=== PATIENT | female | born 1965 | race Caucasian/White ===

== ENCOUNTER 2020-05-26 20:31 | Observation (INO) ==
--- NOTE | 2020-05-26 21:11 | Emergency Department Note ---
Impression & Plan Ventricular tachycardia, Autoimmune hepatitis, Cardiac sarcoidosis, Hypokalemia ED Provider Note NAME: TERESA BRODY AGE: 55 SEX: F ARRIVES VIA: Walk-In INFORMANT: Patient, ED PROVIDER(S): Segundo Kc MD CHIEF COMPLAINT: chest pain PLAN: Disposition: Admit. MEDICAL DECISION MAKING: The patient is a pleasant 55-year-old woman with a complicated past medical history of autoimmune cirrhosis and history of sarcoidosis with sarcoid cardiomy opathy, status post AICD/PPM in September 2019 who presents emerge department with ongoing episodes of chest tingling she reports occurs intermittently for months since her device placement but had an episode tonight when she was at work that she felt lasted longer where she reports feeling this sensation and then noticed her heart rate was in the upper 40s on her watch but then walked her car and within the 110s. The patient denies fevers, chills, cough, congestion, nausea, vomit, diarrhea, urinary symptoms. On arrival the patient is anxious appearing but no acute distress, afebrile stable vital signs. Exam is otherwise unremarkable. EKG without overt acute ischemia. Chest x-ray negative for acute cardiopulmonary process per my preliminary review. WBC and platelets within normal limits. Hct wnl. Chemistry without metabolic acidosis. Potassium 3.6 and electrolytes otherwise without sniffing and abnormality. Total bilirubin 1.9 and AST 55 in the setting of the patient's autoimmune cirrhosis. Troponin negative/undetectable. BNP within normal limits. TSH 5.3 however free T4 within normal limits. Interrogation of the patient's ppm/AICD. Was performed and reviewed with flo.do music sound light technician who confirms the patient did have 2 prolonged episodes of V. tach this evening at approximately 1930 and a 20 which correlates to the patient's symptoms where the first episode required at least 4 treatments of ATP before successfully resolving and subsequently 2 treatments of ATP. Did review the case with the patient's top loader, Dr. Flores who was on-call. Recommends admission if patient agrees. Given the patient's prolonged QTC will defer antiarrhythmics at this time. However the patient did miss her evening metoprolol succinate last night and did not take it today and so will give the patient her home medication and provide potassium supplementation. Likely EP consultation in the morning. Plan was reviewed with the patient and she does agree with admission. Case was discussed with Dr. Pinzon, [facility] hospitalist, who will evaluate the patient for admission. Triage Nursing notes reviewed and agree them. Prior medical records reviewed Vital Signs: reviewed and remarkable for no significant abnormalities Differential diagnosis: Cardiac ischemia, aortic dissection, pulmonary embolism, pneumothorax, pneumonia, pericarditis, myocarditis, esophageal rupture, GERD, cholecystitis, pancreatitis, musculoskeletal, as well as other pathologies. ER treatment provided: See below. Diagnostics interpreted by me: ECG: Normal sinus rhythm, 78 bpm, right bundle branch block, LVH, T wave inversion anteriorly, no overt ST elevation or depression. QTc 519 increased from prior. QRS 150. Cardiac Monitoring: An order for continuous cardiac monitoring was placed and demonstrated Normal sinus rhythm, 78 bpm, no ectopy. Laboratory studies: See below Imaging studies: Chest x-ray: No acute cardiopulmonary process per my preliminary review. Consultation(s): Dr. Flores, [facility] on-call. Case was discussed with Dr. Pinzon, [facility] hospitalist, who will evaluate the patient for admission. HPI: The patient is a pleasant 55-year-old woman with a complicated past medical history of autoimmune cirrhosis and history of sarcoidosis with sarcoid cardiomyopathy, status post AICD/PPM in September 2019 who presents emerge department with ongoing episodes of chest tingling she reports occurs intermittently for months since her device placement but had an episode tonight when she was at work that she felt lasted longer where she reports feeling this sensation and then noticed her heart rate was in the upper 40s on her watch but then walked her car and within the 110s. The patient denies fevers, chills, cough, congestion, nausea, vomit, diarrhea, urinary symptoms. ROS: See above HPI for pertinent positives & negatives. A total of 10 systems reviewed and were otherwise negative. PAST MEDICAL HISTORY:See Below PAST SURGICAL HISTORY:See Below FAMILY HISTORY:See Below SOCIAL HISTORY:See Below HOME MEDICATIONS:See Below ALLERGIES:See Below VITALS:See Below PHYSICAL EXAMINATION: GENERAL: Awake, alert, anxious-appearing, in no distress HENT: Normocephalic, atraumatic. Oropharynx with dry mucous membranes and otherwise unremarkable. EYES: Normal conjunctiva. Sclera non-icteric. NECK: Supple. No nuchal rigidity. FROM. No JVD. RESPIRATORY: Clear to auscultation. CARDIAC: Regular rate, normal rhythm. Extremities warm and well perfused. Pulses equal. ABDOMEN: Soft, non-distended. No tenderness to palpation. No rebound or guarding. No masses. RECTAL: Deferred. MUSCULOSKELETAL: Chest examination reveals no tenderness. The back is symmetri kobe on inspection without obvious abnormality. There is no CVA tenderness to palpation. No joint edema. LOWER EXTREMITIES: Calves are equal size bilaterally and non-tender. Scant BLE edema. No discoloration. NEURO: Normal sensorium. No sensory or motor deficits noted. SKIN: No rash or jaundice noted. Segundo Kc MD Past Med/Surg History Medical History Autoimmune hepatitis Cirrhosis Esophageal varices Primary biliary cirrhosis Surgical History History of esophagogastroduodenoscopy (EGD) Family History Other Coronary heart disease No pertinent family history Social History Smoking Status: Former smoker Tobacco Type: Cigarettes Hx Alcohol Use: No Hx Substance Use: No Preferred Language: Chinese Communication Ability: Effective Business Loan Processor Required: No Beliefs That Will Affect Care: None Current Living Situation: Spouse Feels Safe at Home: Yes Assistive Devices: Glasses Allergies Allergies Allergy/AdvReac Type Severity Reaction Status Date / Time acetaminophen [From Tylenol] Allergy Unknown Body rash Verified 05/26/20 21:38 and swelling of tongue Home Meds Home Medications Medication Instructions Recorded Confirmed ergocalciferol (vitamin D2) 50,000 unit PO WK 03/13/18 05/26/20 [Vitamin D2] ferrous sulfate 325 mg PO DAILY 03/13/18 05/26/20 lactulose 15 ml PO TID 03/13/18 05/26/20 magnesium oxide 400 mg PO BID 03/13/18 05/26/20 pantoprazole 40 mg PO DAILY 03/13/18 05/26/20 ursodiol 300 mg PO TID 03/13/18 05/26/20 bumetanide 2 mg PO DAILY 05/26/20 05/26/20 metoprolol succinate 75 mg PO HS 05/26/20 05/26/20 spironolactone 100 mg PO DAILY 05/26/20 05/26/20 venlafaxine 37.5 mg PO DAILY 05/26/20 05/26/20 Results & Data (ED) Vital Signs Vital Signs - 24 hr 05/26/20 20:36 05/26/20 20:50 05/26/20 21:11 Temperature 36.7 C Temperature Source Oral Pulse Rate 90 84 Pulse Rate from SpO2 Sensor 84 Respiratory Rate 16 18 Respiratory Effort / Characteristics Non-Labored Spontaneous Respiratory Depth Normal Blood Pressure 118/83 121/73 Blood Pressure Mean 94 96 Pulse Oximetry 98 97 Oxygen Delivery Method Room Air Room Air Sepsis Recent Fever Within 48 Hours No Sepsis New/Unexplained Change in Mental Status No Sepsis Action Taken by Nursing No Action Required 05/26/20 22:30 05/26/20 23:36 05/27/20 00:54 Temperature Temperature Source Pulse Rate 78 78 70 Pulse Rate from SpO2 Sensor 75 79 70 Respiratory Rate 19 18 17 Respiratory Effort / Characteristics Respiratory Depth Blood Pressure 117/68 109/72 116/55 L Blood Pressure Mean 84 82 78 Pulse Oximetry 90 100 96 Oxygen Delivery Method Room Air Room Air Sepsis Recent Fever Within 48 Hours Sepsis New/Unexplained Change in Mental Status Sepsis Action Taken by Nursing 05/27/20 01:00 Temperature Temperature Source Pulse Rate 69 Pulse Rate from SpO2 Sensor 71 Respiratory Rate 16 Respiratory Effort / Characteristics Respiratory Depth Blood Pressure 116/53 L Blood Pressure Mean 78 Pulse Oximetry 97 Oxygen Delivery Method Room Air Sepsis Recent Fever Within 48 Hours Sepsis New/Unexplained Change in Mental Status Sepsis Action Taken by Nursing Laboratory Data Attestation: I reviewed the patient's lab results. Result diagrams: 05/26/20 21:11 05/26/20 21:11 Lab Results 05/26/20 05/26/20 05/26/20 Range/Units 21:11 21:11 21:11 WBC 6.23 (4.8-10.8) K/uL RBC 4.53 (4.2-5.4) M/uL Hgb 16.1 H (12.0-16.0) g/dL Hct 44.5 (37-47) % MCV 98.2 (80-100) fL MCH 35.5 H (25-34) pg MCHC 36.2 H (32-36) g/dL RDW Std Deviation 48.6 H (36.4-46.3) fL RDW Coeff of Sincere 13.6 (11.5-14.5) % Plt Count 169 (130-400) K/uL MPV 11.3 H (7.4-10.4) fL Immature Gran % (Auto) 0.2 % Neut % (Auto) 60.1 % Lymph % (Auto) 26.0 % [place] % (Auto) 11.4 % Eos % (Auto) 1.8 % Baso % (Auto) 0.5 % Neut # (Auto) 3.75 (1.4-6.5) K/uL Lymph # (Auto) 1.62 (1.2-3.4) K/uL [place] # (Auto) 0.71 H (0.11-0.59) K/uL Eos # (Auto) 0.11 (0-0.5) K/uL Baso # (Auto) 0.03 (0-0.2) K/uL Immature Gran # (Auto) 0.01 (0.00-0.02) K/uL PT 11.9 (9.0-12.0) Seconds INR 1.1 (0.9-1.1) APTT 27.9 (21.0-31.0) Seconds PTT Ratio 1.0 Sodium 141 (136-145) mmol/L Potassium 3.6 (3.5-5.1) mmol/L Chloride 107 (98-107) mmol/L Carbon Dioxide 26 (21-32) mmol/L Anion Gap 8.0 (3-11) BUN 13 (7-18) mg/dl Creatinine 0.96 (0.6-1.2) mg/dl Est Cr Clr Drug Dosing 70.7 ml/min Est GFR ( Amer) 78.3 Est GFR (Non-Af Amer) 67.5 BUN/Creatinine Ratio 13.6 (10-20) Glucose 99 (70-99) mg/dl Calcium 9.4 (8.5-10.1) mg/dl Phosphorus 2.8 (2.5-4.9) mg/dl Magnesium 2.0 (1.8-2.4) mg/dl Total Bilirubin 1.9 H (0.2-1) mg/dl AST 55 H (15-37) U/L ALT 55 (12-78) U/L Alkaline Phosphatase 137 H (45-117) U/L Troponin I < 0.015 (0-0.045) ng/ml NT-Pro-B Natriuret Pep 184 (0-900) pg/ml Total Protein 7.3 (6.4-8.2) gm/dl Albumin 3.7 (3.4-5.0) gm/dl Globulin 3.6 (2.5-4.0) gm/dl Albumin/Globulin Ratio 1.0 (0.9-2) Lipase 163 (73-393) U/L TSH 5.310 H (0.300-4.500) uIu/ml Free T4 1.20 (0.8-1.6) ng/dl Administered Medications Discontinued Medications Potassium Chloride (K Luke / Wtr) 10 meq in 100 mls @ 100 mls/hr IV Q1H LAURA Stop: 05/27/20 02:14 Last Infusion: 05/27/20 02:28 Dose: 0 mls/hr Documented by: [id number] Admin: 05/27/20 01:27 Dose: 100 mls/hr Documented by: [id number] Infusion: 05/27/20 01:26 Dose: 0 mls/hr Documented by: [id number] Admin: 05/27/20 00:23 Dose: 100 mls/hr Documented by: [id number] Metoprolol Succinate (Metoprolol Succ 50mg Ext Rel Tab) 75 mg PO NOW STA Stop: 05/27/20 00:10 Last Admin: 05/27/20 00:23 Dose: 75 mg Documented by: [id number] Potassium Chloride (Potassium Chloride Crtab 20 Meq Tabcr) 20 meq PO NOW STA Stop: 05/27/20 00:09 Last Admin: 05/27/20 00:23 Dose: 20 meq Documented by: [id number] Discharge Plan Visit Data Chief Complaint: Cardiac Assessment Stated Complaint: DR NEVILLE, IRREGULAR HEART RATE ED Provider: Segundo Kc Discharge Problem: Ventricular tachycardia, Autoimmune hepatitis, Cardiac sarcoidosis, Hypokalemia Patient Disposition: Admitted As Inpatient Discharge Instructions Interventions: ED Discharge Assessment Last Done: 05/27/20 03:18
[2020-05-26 21:35] LABS: Basophils # (auto) 0.03 K/uL (0-0.2); Basophils % (auto) 0.5 %; Eosinophils # (auto) 0.11 K/uL (0-0.5); Eosinophils % (auto) 1.8 %; Hematocrit (blood only) 44.5 % (37-47); Hemoglobin 16.1 g/dL (12.0-16.0); Immature Granulocytes # (auto) 0.01 K/uL (0.00-0.02); Immature Granulocytes % (auto) 0.2 %; Lymphocytes # (auto) 1.62 K/uL (1.2-3.4); Mean Corpuscular Hemoglobin 35.5 pg (25-34); Mean Corpuscular Hgb Conc 36.2 g/dL (32-36); Mean Corpuscular Volume 98.2 fL (80-100); Mean Platelet Volume 11.3 fL (7.4-10.4); Monocytes # (auto) 0.71 K/uL (0.11-0.59); Monocytes % (auto) 11.4 %; Neutrophils # (auto) 3.75 K/uL (1.4-6.5); Neutrophils % (auto) 60.1 %; Platelet Count 169 K/uL (130-400); RDW Coefficient of Variation 13.6 % (11.5-14.5); RDW Standard Deviation 48.6 fL (36.4-46.3); Red Blood Count 4.53 M/uL (4.2-5.4); White Blood Count 6.23 K/uL (4.8-10.8)
[2020-05-26 21:38] LABS: Chloride 107 mmol/L (98-107); Potassium 3.6 mmol/L (3.5-5.1); Sodium 141 mmol/L (136-145)
[2020-05-26 21:41] LABS: INR 1.1 (0.9-1.1); Partial Thromboplastin Time 27.9 Seconds (21.0-31.0); Prothrombin Time 11.9 Seconds (9.0-12.0)
[2020-05-26 22:20] LABS: Alanine Aminotransferase 55 U/L (12-78); Albumin Level 3.7 gm/dl (3.4-5.0); Aspartate Aminotransferase 55 U/L (15-37); BUN Creatinine Ratio 13.6 (10-20); Blood Urea Nitrogen 13 mg/dl (7-18); Calcium 9.4 mg/dl (8.5-10.1); Carbon Dioxide 26 mmol/L (21-32); Creatinine Clr Calc Pharmacy 70.7 ml/min; Est GFR (African American) 78.3; Est GFR (Non-African American) 67.5; Glucose 99 mg/dl (70-99); Lipase 163 U/L (73-393); NT Pro B Type Natriuretic Pept 184 pg/ml (0-900); Troponin I < 0.015 ng/ml (0-0.045)
[2020-05-26 22:22] LABS: Globulin 3.6 gm/dl (2.5-4.0); Phosphorus 2.8 mg/dl (2.5-4.9); Total Protein 7.3 gm/dl (6.4-8.2)
[2020-05-26 22:33] LABS: Alkaline Phosphatase 137 U/L (45-117); Bilirubin,Total 1.9 mg/dl (0.2-1)
[2020-05-27] MEDS ORDERED: POTASSIUM CHLORIDE CRTAB 20 MEQ TABCR PO STA (00:08)
[2020-05-27] MEDS ORDERED: METOPROLOL SUCC 50MG EXT REL TAB PO STA (00:09)
[2020-05-27] MEDS: POTASSIUM CHLORIDE / WTR 10 MEQ/100 ML PLCT IV SCH ×2 (00:23→01:27)
--- NOTE | 2020-05-27 00:52 | History & Physical Report ---
Date of Service May 27, 2020 Assessment & Plan (1) History of cirrhosis: (2) Cardiac sarcoidosis: (3) Ventricular tachycardia: Jossy is a 55-year-old female with a past medical history of autoimmune cirrhosis and sarcoidosis with sarcoid cardiomyopathy with AICD placement 09/2019 who presented to the emergency department with episodes of chest discomfort which on pacer interrogation correlated with episodes of ventricular tachycardia. Chest discomfort 2/2 ventricular tachycardia, history of cardiac sarcoidosis Patient with an episode at 730 and 8 PM of fluctuating heart rate between 40s and low 100s with chest discomfort. AICD confirms 1 minute run of ventricular tachycardia which corrected with pacing, no electrical cardioversion required. Discussed with cardiology emergency provider. Recommended metoprolol in ED and admission with morning consultation EKG shows QTC 500 Metoprolol 75 mg p.o. given in ED Admit to medical telemetry Cardiology consulted Optimize potassium 4.0, magnesium 2.0 Troponin negative Chest pain improved at time of hospitalist assessment chest x-ray shows ICD in place, question pulmonary nodules, no acute findings Patient denies cough, shortness of breath, pulmonary symptoms to indicate oral glucocorticoid treatment. Formal read of x-ray pending, patient would likely benefit from PFTs to evaluate for deteriorating lung function. Recommend follow-up with pulmonology as outpatient. Autoimmune hepatitis, history of varices with GI bleed s/p TIPS procedure 3 years ago Patient with known history of autoimmune cirrhosis/hepatitis Bilirubin, AST, and alkaline phosphatase elevated EGD on 03/2018 showed grade 1 varices Continue beta-jacinto, Protonix, ursodiol Follow clinically at this time No signs of acute bleeding Elevated TSH TSH mildly elevated, 5.3 Free T4 normal Repletion not indicated at this time Depression/anxiety Continue venlafaxine 37.5 mg p.o. daily DVT prophylaxis: SCDs, defer pharmacoppx 2/2 known varices Diet: Heart healthy Disposition: Medical surgical with telemetry CODE STATUS: Full code History of Present Illness Primary Care Provider: Stephen [place] Jossy Naqvi is a 55-year-old female with a past medical history of cardiac sarcoidosis presents with an episode of palpitations and 1 minute of recurrent VT noted on pacer interrogation. Rona reports she has a pacemaker defibrillator. She has been experiening a sensation of heart racing. She had a sensation and a 'spell' that is hard to describe this evening around 730pm. [employer] heart watch showed a rate of 48bmp. She was concerend about driving so she waiting a few minutes and it increased to 118. She called a coworker to drive her because sh was concerned. Her coworker took her BP with an autocuff but couldn't get a reading. She felt 'weird, not like a chest pain or nothign like that but I could tell like a flutter.' She had a similar episode around [place]. She was concerned about her heart so presented to the emergency department for further evaluation. She missed 1 dose of her metoprolol the night prior to this episode and wasnt sure if she should take it in the morning so was waiting until the evening to take the next dose. Denies lightheadedness and dizziness. Denies shortness of breath and difficulty breathing. Denies chest pain and chest pressure Denies numbness/tingling Endorses a hx of autoimmune cirrhosis which is stable and hasn't been chaing with her current medications. No recent problems with bleeding or varices. Medical History: Reviewed. Of note missed last metoprolol dose which was given in the ER. Surgical History: Reviewed Family History: Reviewed Allergies: Tylenol, rash and tongue swelling Social History: Had occasional cigarette use socially in the past, has not smoked in a few weeks. No alcohol or recreational drug use. CODE STATUS: Full code Allergies Allergy/AdvReac Type Severity Reaction Status Date / Time acetaminophen [From Tylenol] Allergy Unknown Body rash Verified 05/26/20 21:38 and swelling of tongue Home Medications Medication Instructions Recorded Confirmed Type ergocalciferol (vitamin D2) 50,000 unit PO WK 03/13/18 05/26/20 History [Vitamin D2] ferrous sulfate 325 mg PO DAILY 03/13/18 05/26/20 History lactulose 15 ml PO TID 03/13/18 05/26/20 History magnesium oxide 400 mg PO BID 03/13/18 05/26/20 History pantoprazole 40 mg PO DAILY 03/13/18 05/26/20 History ursodiol 300 mg PO TID 03/13/18 05/26/20 History bumetanide 2 mg PO DAILY 05/26/20 05/26/20 History metoprolol succinate 75 mg PO HS 05/26/20 05/26/20 History spironolactone 100 mg PO DAILY 05/26/20 05/26/20 History venlafaxine 37.5 mg PO DAILY 05/26/20 05/26/20 History Past Med/Surg History Medical History Autoimmune hepatitis Cirrhosis Esophageal varices Primary biliary cirrhosis Surgical History History of esophagogastroduodenoscopy (EGD) Family History Other Coronary heart disease No pertinent family history Social History Smoking Status: Light tobacco smoker Tobacco Type: Cigarettes Hx Alcohol Use: No Hx Substance Use: No Preferred Language: Palauan Communication Ability: Effective Gas Turbine Powerplant Mechanic Required: No Beliefs That Will Affect Care: None Current Living Situation: Spouse Feels Safe at Home: Yes Assistive Devices: Glasses Review of Systems Review of Systems: Constitutional: Denies fever, chills Eyes: Denies vision change ENT: Denies ear pain, sore throat, sinus pain Cardiovascular: See HPI Respiratory: See HPI Gastrointestinal: Denies abdominal pain, nausea, vomiting, constipation, diarrhea Genitourinary: Denies pain with urination, urinary urgency, urinary frequency Musculoskeletal: See HPI Integumentary:Denies rash, lesions, bruising Neurological: Denies numbness, tingling, focal weakness Physical Exam Physical Exam: General: A&Ox3. NAD. Cooperative. HEENT: Atraumatic, normocephalic. PERLAA. EoM intact without nystagmus. Pulm: CTAB A&P. -wheezes, -rales, -rhonchi. Symmetrical chest rise. No increase work of breathing. No respiratory distress. Cardiac: RRR, softy systolic murmur. Radial pulses intact and symmetrical. Cardiac device palpable at JAKE thorax. Abdominal: Nontender, nondistended, soft. BS present. Extremities: Bilateral lower extremity edema, 1+. Distal extremity strength grossly intact without asymmetry. Sensation intact in fingers and toes bilaterally without deficit. Results & Data Results & Data ([facility]) Vital Signs (Past 12 Hours) Vital Signs Temp Pulse Resp BP Pulse Ox 05/26/20 23:36 78 18 109/72 100 01/14/21 22:30 78 19 117/68 90 05/26/20 20:50 84 18 121/73 97 05/26/20 20:36 36.7 C 90 16 118/83 98 Supervising Physician Co-Signing Physician Notes Patient seen and examined, chart reviewed, case discussed with Dr. Irvin and I agree with her assesment and plan as above - briefly, patient is a 55yo C female with history of Sarcoidosis with resultant cardiomyopathy/conduction abnormality s/p AICD placement 09/2019, Autoimmune cirrhosis presenting after episode of sustained VT at home. Patient missed her dose of PO Metoprolol last evening. Paced out of VT. No shock delivered On exam she is afebrile, HD stable, NAD Skin - no rashes/lesions HEENT - NC/AT, PERRL, EOMI Heart - +S1/S2, regular, no m/r/g Lungs - CTA Abd - +BS, soft, NT/ND Ext - No edema Labs and images reviewed. Assessment/Plan: s/p episode of sustained VT triggering AICD. Presently in NSR -Optimize electrolytes -Continue Metoprolol -Cardiac monitoring -Remainder of plan as above Resident Activity Tracking Resident Involvement: Resident Care Provided Care Provided: Adult Hospital Medicine
--- NOTE | 2020-05-27 04:10 | Billing Data ---
Date of Service May 27, 2020 Coding Level of Care Code 57278 Initial Inpt Care Lvl 3
[2020-05-27] MEDS: POTASSIUM CHLORIDE CRTAB 20 MEQ TABCR PO SCH ×3 (05:34→12:42)
--- NOTE | 2020-05-27 06:53 | XRay Report ---
XR chest 1V portable CLINICAL HISTORY: Atypical chest pain COMPARISON STUDY: None FINDINGS: The cardiac and mediastinal contours are normal. There is a left subclavian pacer/defibrill ator. There is no failure. No focal pulmonary consolidation. There are no pleural effusions.[ IMPRESSION: No active disease in the chest. ACT 112: Negative or not required by law. Electronically signed by: Sebastián Mckinney M.D. 05/27/2020 6:51 AM
[2020-05-27] MEDS: LACTULOSE SYRUP 20 GM/30 ML UDC PO SCH ×2 (08:14→12:42)
[2020-05-27] MEDS: ursodioL 300 MG CAP PO SCH ×2 (08:14→12:42)
[2020-05-27] MEDS ORDERED: BUMETANIDE 1 MG TAB PO SCH (09:00)
[2020-05-27] MEDS ORDERED: MAGNESIUM OXIDE 400 MG TAB PO SCH (09:00)
[2020-05-27] MEDS ORDERED: FERROUS SULFATE 325 MG TAB PO SCH (09:00)
[2020-05-27] MEDS ORDERED: PANTOprazole 40 MG TAB PO SCH (09:00)
[2020-05-27] MEDS ORDERED: SPIRONOLACTONE 100 MG TAB PO SCH (09:00)
[2020-05-27] MEDS ORDERED: VENLAFAXINE HCL XR 37.5 MG CAPXR PO SCH (09:00)
[2020-05-27] MEDS ORDERED: rifAXIMin 550 MG TABLET PO SCH (09:00)
[2020-05-27] MEDS ORDERED: METOPROLOL SUCC 50MG EXT REL TAB PO SCH (09:15)
--- NOTE | 2020-05-27 09:28 | Cardiology Consultation ---
Date of Consultation The patient notes that on Saturday evening she fell asleep and did not take her 75 mg of Toprol. When she awoke morning she was not sure what to do and did not take any beta-blockers at all. She worked a 12-hour day as she normally does. Upon leaving in the car she started to feel palpitations and fluttering and there was variability in her heart rate on her apple watch. I did review her apple watch tracings and she was having PVCs and ventricular couplets. She then had her typical central sensation of feeling palpitations and it sounds like when she has ATP from her defibrillator she gets very anxious and jittery with it. She describes 2 distinct episodes in time which were present on her device interrogation. At no point was she lightheaded or dizzy. She did not have any presyncope or syncope. Her drove her to the emergency room here. She denies any lightheadedness this morning. Chest pain or chest pressure. She feels back to her self. Her lower extremity has resolved with switching her from Lasix to Bumex. She remains on high-dose Aldactone. She is awake alert and oriented x3 she is in no acute distress. HEENT 2+ carotid upstrokes no evidence of carotid bruits jugular venous pressure appeared elevated Lungs: Clear to auscultation bilaterally no rales rhonchi or wheezing Heart: Regular rate and rhythm no appreciable murmurs rubs or gallops Abdomen: Soft nontender distended positive bowel sounds Extremities no clubbing cyanosis or edema Psychiatric after appear appropriate Neurologic she is awake alert and oriented x3 Her inpatient EKG and laboratory studies as well as medications were reviewed. I did discuss her case with the emergency room last evening and with the addition of 75 mg of Toprol immediately her arrhythmias resolved I discussed discussed the case with Dr. NOBLE of electrophysiology at [facility] Who has seen the patient before. 1. 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 Admission for sustained ventricular tachycardia with 2 separate events status post ATP of note the patient had not taken her beta-blockers in the previous 48 hours 2. History of sustained ventricular tachycardia status post dual-chamber pacemaker 3. [employer] dual-chamber defibrillator vigilant EL ICD MRI compatible 3B history of right bundle branch block with prolonged QTC at 419 ms this admission 4. 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 History of significant portal hypertension with both esophageal and gastric varices status post TIPS procedure 6. History of hepatic encephalopathy 7. History of lower extremity edema improved with switching from Lasix to Bumex This is a very complicated case. We are in full agreement that she has cardiac sarcoidosis. The frequency of her arrhythmias also suggest this. She had an MRI done at [facility] which suggested cardiac sarcoidosis but was not definitive. She is awaiting a cardiac PET scan which has been scheduled in the next 2 weeks to confirm inflammatory sarcoidosis within her myocardium. The challenges of treating her arrhythmias are multiple. the first is her QTC is prolonged which makes the use of sotalol incredibly challenging. Additionally amiodarone is an option even though it can prolong her QT as it is less likely to cause torsade but with her liver disease we potentially risk impacting her liver. Additionally once we start amiodarone she will be on amiodarone for life most likely. Dr. Lara who is her health promotion manager at [facility] has documented that he is okay with using amiodarone if we had no other options. In light of all of this my recommendation is 50 mg of Toprol twice daily. hopefully this will not cause lightheadedness or dizziness. We do not need to worry about bradycardia as she has a dual-chamber defibrillator. I would keep her magnesium greater than 2.0 and we will discharge her on oral magnesium. I would keep her potassium greater than 4. She is already on high-dose Aldactone. I would discharge her on 20 mEq of potassium in addition. She should remain on her current dose of Bumex. She will need a BMP and a magnesium in 10 days time and I will see her in the office in 10 days. I am waiting to hear back from [facility]. The plan is to start steroids to treat her cardiac sarcoidosis. At this point we do not think we have an option given the frequency of her arrhythmias. Once I am instructed with the steroid dosing and potential taper this will need be initiated prior to discharge. This was all discussed with the primary service as well as the residents and physicians as above May 27, 2020 History of Present Illness Attending Physician: Brigitte Benjamin MD Allergies Allergy/AdvReac Type Severity Reaction Status Date / Time acetaminophen [From Tylenol] Allergy Unknown Body rash Verified 05/26/20 21:38 and swelling of tongue Home Medications Medication Instructions Recorded Confirmed Type ergocalciferol (vitamin D2) 50,000 unit PO WK 03/13/18 05/26/20 History [Vitamin D2] ferrous sulfate 325 mg PO DAILY 03/13/18 05/26/20 History lactulose 15 ml PO TID 03/13/18 05/26/20 History magnesium oxide 400 mg PO BID 03/13/18 05/26/20 History pantoprazole 40 mg PO DAILY 03/13/18 05/26/20 History ursodiol 300 mg PO TID 03/13/18 05/26/20 History bumetanide 2 mg PO DAILY 05/26/20 05/26/20 History metoprolol succinate 75 mg PO HS 05/26/20 05/26/20 History spironolactone 100 mg PO DAILY 05/26/20 05/26/20 History venlafaxine 37.5 mg PO DAILY 05/26/20 05/26/20 History rifaximin [Xifaxan] 550 mg PO BID 05/27/20 05/27/20 History Patient History Medical History Autoimmune hepatitis Cirrhosis Esophageal varices Primary biliary cirrhosis Surgical History History of esophagogastroduodenoscopy (EGD) Family History Other Coronary heart disease No pertinent family history Social History Smoking Status: Former smoker Tobacco Type: Cigarettes Hx Alcohol Use: No Hx Substance Use: No Preferred Language: Romansh Communication Ability: Effective Label Drier Required: No Beliefs That Will Affect Care: None Current Living Situation: Spouse Feels Safe at Home: Yes Assistive Devices: Glasses Results & Data ([facility]) Vital Signs (Past 12 Hours) Vital Signs Temp Pulse Pulse Resp BP BP Pulse Ox 05/27/20 07:42 36.5 C 60 18 106/66 90 05/27/20 06:55 60 05/27/20 03:30 36.6 C 62 20 94/51 L 93 05/27/20 03:02 66 20 101/53 L 92 05/27/20 02:00 63 12 116/47 L 93 05/27/20 01:00 69 16 116/53 L 97 05/27/20 00:54 70 17 116/55 L 96 05/26/20 23:36 78 18 109/72 100 05/26/20 22:30 78 19 117/68 90
[2020-05-27] MEDS ORDERED: predniSONE 20 MG TAB PO SCH (10:30)
[2020-05-27] MEDS ORDERED: METOPROLOL SUCC 25MG EXT REL TAB PO SCH (21:00)
--- NOTE | 2020-05-27 23:10 | Electrocardiogram Report ---
Test Reason : Blood Pressure : / mmHG Vent. Rate : 078 BPM Atrial Rate : 078 BPM P-R Int : 146 ms QRS Dur : 150 ms QT Int : 456 ms P-R-T Axes : 047 -36 052 degrees QTc Int : 519 ms Normal sinus rhythm Left axis deviation Right bundle branch block Minimal voltage criteria for LVH, may be normal variant Abnormal ECG When compared with ECG of 13-MAR-2018 10:04, QRS axis Shifted left T wave inversion now evident in Anterior leads Confirmed by Terry Torres ([id number]) on 05/27/2020 11:09:54 PM Referred By: James Maurice Confirmed By:Terry Torres
--- NOTE | 2020-05-27 23:27 | Discharge Summary ---
Date of Service May 27, 2020 Admission HPI Per Admitting Provider Jossy Naqvi is a 55-year-old female with a past medical history of cardiac sarcoidosis presents with an episode of palpitations and 1 minute of recurrent VT noted on pacer interrogation. Rona reports she has a pacemaker defibrillator. She has been experiencing a sensation of heart racing. She had a sensation and a 'spell' that is hard to describe this evening around 730pm. [employer] heart watch showed a rate of 48bmp. She was concerned about driving so she waiting a few minutes and it increased to 118. She called a coworker to drive her because sh was concerned. Her coworker took her BP with an autocuff but couldn't get a reading. She felt 'weird, not like a chest pain or nothign like that but I could tell like a flutter.' She had a similar episode around Jessica. She was concerned about her heart so presented to the emergency department for further evaluation. She missed 1 dose of her metoprolol the night prior to this episode and wasnt sure if she should take it in the morning so was waiting until the evening to take the next dose. Denies lightheadedness and dizziness. Denies shortness of breath and difficulty breathing. Denies chest pain and chest pressure Denies numbness/tingling Endorses a hx of autoimmune cirrhosis which is stable and hasn't been chaing with her current medications. No recent problems with bleeding or varices. Medical History: Reviewed. Of note missed last metoprolol dose which was given in the ER. Surgical History: Reviewed Family History: Reviewed Allergies: Tylenol, rash and tongue swelling Social History: Had occasional cigarette use socially in the past, has not smoked in a few weeks. No alcohol or recreational drug use. CODE STATUS: Full code Admission Exam Per Admitting Provider General: A&Ox3. NAD. Cooperative. HEENT: Atraumatic, normocephalic. PERLAA. EoM intact without nystagmus. Pulm: CTAB A&P. -wheezes, -rales, -rhonchi. Symmetrical chest rise. No increase work of breathing. No respiratory distress. Cardiac: RRR, softy systolic murmur. Radial pulses intact and symmetrical. Cardiac device palpable at JAKE thorax. Abdominal: Nontender, nondistended, soft. BS present. Extremities: Bilateral lower extremity edema, 1+. Distal extremity strength grossly intact without asymmetry. Sensation intact in fingers and toes bilaterally without deficit. Principal Diagnosis ventricular tachycardia Discharge Exam General: Grossly A&O. NAD. Cooperative. HEENT: Atraumatic, normocephalic. Pulm: Inspiratory crackles at bases. No increased work of breathing. No respiratory distress. Cardiac: RRR, no murmur noted. 1+ lower extremity edema. Abdominal: Nontender, nondistended, soft. Discharge Data Allergies Allergy/AdvReac Type Severity Reaction Status Date / Time acetaminophen [From Tylenol] Allergy Unknown Body rash Verified 05/26/20 21:38 and swelling of tongue Consultations 05/27/20 00:20 ED Decision to Admit Stat 05/27/20 03:45 Consult Cardiology Routine Hospital Course (1) History of cirrhosis: (2) Cardiac sarcoidosis: (3) Ventricular tachycardia: Jossy Naqvi is a 55-year-old female with a past medical history of autoimmune cirrhosis, and sarcoidosis (pulmonary and presumed cardiac, s/p AICD placement 09/2019) who presented to [facility] ED on 05/26/20 (hospital admission -05/27/20) for chest discomfort and palpitations which on pacer interrogation correlated w/ 1 minute run of ventricular tachycardia. Symptoms have resolved and have not returned. palpitations 2/2 ventricular tachycardia 2/2 progression of cardiac sarcoidosis The episode of palpitations at 1999 on 05/26/20 on pacemaker interrogation in the ED was correlated w/ 1 min run of VT. Patient's metoprolol succinate PO has needed progressive increasing (follows [facility]. 25 mg qhs > 50 mg qhs 04/2020 after previous episode of symptomatic VT. 05/19/19 electrophysiology visit increased to 75 mg qhs). She had missed the 05/24/20 dose of metoprolol 75mg. During this admission, provided metoprolol succinate 75 mg PO in the ED. Cardiology (Dr. Maurice, whom patient recently established w/ as outpt) consulted and home 75 mg qhs dose adjusted to 50 mg BID. Per patient's Apple Watch, she had been having frequent PVCs w/ couplets prior to the VT. Cardiology contacted [facility] (Dr. Hopkins) and discussed that patient has cardiac sarcoidosis (though not confirmed by biopsy or PET scan) and started the patient on prednisone 40 mg PO daily (w/ intended adjustment/taper to be decided at outpatient cardiology f/u. Per 04/28/21 hepatology note, patient had previously had avoided steroids because of concern about worsened LE fluid retention). Patient has upcoming 06/06/20 PET scan (already ordered during 05/19/19 electrophysiology visit) and intended to confirm dx of cardiac sarcoidosis). Chest discomfort (had some in ED) and palpitations did not return after hospital admission. Regarding the increasing frequency of arrhythmia (supports progression/worsening of cardiac sarcoidosis), options are limited based on prolonged QTC 519 and hx of complicated cirrhosis. Sotalol would have fewer concerns about hepatotoxicity, but has concerns of QT prolongation. Amiodarone, per cardiology would be most likely candidate for antiarrhythmic, if one were chosen, because QT prolongation would be more tolerable. Downsides would be known side effects and likely lifelong/prolonged use. - relevant labwork this admission: K 3.6. Mg 2.0. neg trop x1. ntproBNP 186. BUN 13. Cr 0.96. - 05/26/20 cxr: no acute process - 05/26/20 ECG (confirmed read): NSR 78 bpm. LAD. RBBB. When compared with ECG of 13-MAR-2018 10:04, QRS axis Shifted left, T wave inversion now evident in Anterior leads. - Patient's AICD device: [employer] dual-chamber defibrillator vigilant EL ICD MRI compatible. Actions/changes upon hosp dispo 1. metoprolol succinate 50 mg BID 2. Prescribed 20 meq potassium PO daily. Continue magnesium supplement 400 mg PO BID (already on old home med list, but accidently represcribed. do not double. will notify patient). Goal is 4.0 or greater K, 2.0 or greater Mg. 3. BMP and Mg labwork on ~06/06/20. Ordered via [employer] system. 4. Continue all other home meds, including Bumex 2 mg PO daily and spironolactone 100 mg PO daily 4. outpatient cardiology followup visit w/ Dr. Maurice 06/15/20 (confirmed via [employer] system) 5. patient previously took venlafaxine 37.5 mg PO qhs, but had missed dose prior to admission and was restarted at 0800 05/27/20. Instructed to delay daily dose by 3 hours each day back to night time. Most recent electrophysiology note (05/19/20 Dr. Hopkins) and hepatology note (04/28/21 Dr. Lara) reviewed in [facility]. Patient denies cough, shortness of breath, pulmonary symptoms to indicate oral glucocorticoid treatment. Formal read of x-ray pending, patient would likely benefit from PFTs to evaluate for deteriorating lung function. Recommend follow-up with pulmonology as outpatient. cirrhosis 2/2 autoimmune hepatitis w/ PBC overlap syndrome - stable this admission. follows Dr. Lara hepatology at [facility] as an outpatient - hx of varices with GI bleed s/p TIPS procedure 3 years ago - hx of hepatopulmonary syndrome - Bilirubin, AST, and alkaline phosphatase elevated - EGD on 03/2018 showed grade 1 varices - Continue beta-jacinto, Protonix, ursodiol, rifaximin Elevated TSH - TSH mildly elevated, 5.3. T4 wnl. stable. Depression/anxiety - continue venlafaxine 37.5 mg p.o. daily. see schedule above DVT prophylaxis: SCDs, deferred chemical dvt ppx this admission 2/2 known varices CODE STATUS: Full code Total Time Total Time Spent Total Time Spent (In Minutes): Please see attending documentation. Discharge Plan Discharge Items Patient Disposition: Home - Self-Care Reason For Visit: VT Discharge Diagnosis: ventricular tachycardia Activity: Per Instructions section Non-emergency contact: Primary Care Provider and Medical Accounts Receivable Specialist Call non-emergency contact if: you have any medication questions, your symptoms worsen and your pain is not controlled Follow-up/Referrals: James Maurice DO [Physician] - (hospital f/u in 10 days from 05/27/20 discharge.) Stephen Montana M.D. [Primary Care Provider] - (hospital f/u in 1 week from 05/27/20 discharge) Diet: Regular Addtl Attending Provider Instructions: You were admitted to [facility] for fluttering sensation of your chest and a rapid heart rhythm called ventricular tachycardia. In the ED, your pacemaker was checked and this showed that the ventricular tachycardia lasted for a minute. You were admitted to the hospital floor overnight for further evaluation. Dr. Maurice, your grain packer was consulted. H e contacted the specialist at [facility] and they are in agreement that the increase in the frequency of your arrhythmias is likely related to cardiac sarcoidosis. The PET scan at [facility] that you have upcoming in 2 weeks is to help confirm this. - Instead of metoprolol succinate 75 mg nightly, please take metoprolol succinate 50 mg twice a day. If you feel any weakness or dizziness after taking this medicine, please contact Dr. Maurice to adjust your dosage. - Please take prednisone 40 mg tab once a day. Continue this dose until you see your grain packer Dr. Maurice. He will adjust the dose as needed at that time. - You have been prescribed 20 meq of oral potassium (packet form prescribed) once a day. - You have been prescribed oral magnesium supplement. 400 mg by mouth twice a day. For your venlafaxine, you had missed a home nightly dose, so you were given a dose here on 05/27/20 in the hospital at 0800 AM. Please do not take a dose tonight (05/27/19). You will return to the nighttime timing by delaying time of taking by 3 hours a day. Take tomorrow's dose at 1100 AM. ON 05/29/20, take the dose at 2PM. Take the 05/30/20 dose at 5PM. Take the 06/02/20 dose at 8PM. Please follow up with Dr. Maurice (grain packer) in 10 days. You will need your labs checked in 10 days (06/06/20), basic metabolic panel and magnesium level. I will order this lab order for you in the [employer] system and you will get a call from the lab office to confirm. Please follow up with your primary care doctor in ~1 week. If you do not hear back regarding the appointments, please call to schedule. If you develop any new or worsening symptoms including fever, chills, sweats, chest pain, chest pressure, difficulty breathing, uncontrolled nausea/vomiting, rash, wheezing, passing out or nearly passing out, bleeding, black/bloody bowel movements, or other new or concerning symptoms please call your primary care physician, or call 911 for re-evaluation in the emergency department if you are very concerned. Pending Studies at Discharge: No Stand-Alone Forms: My [employer], Smoking Cessation Medications and DC Order Prescriptions: New metoprolol succinate 50 mg Tablet Extended Release 24 Hr 50 mg PO BID 60 Days Qty: 120 RF: 0 magnesium oxide 400 mg (241.3 mg magnesium) Tablet 400 mg PO BID 60 Days Qty: 120 RF: 0 potassium chloride 20 mEq packet 20 meq PO DAILY 90 Days Qty: 100 RF: 0 prednisone 20 mg Tablet 40 mg PO DAILY@0800 30 Days Qty: 2 RF: 0 Continued venlafaxine 37.5 mg capsule,extended release 24hr 37.5 mg PO DAILY RF: 0 bumetanide 2 mg tablet 2 mg PO DAILY RF: 0 spironolactone 100 mg tablet 100 mg PO DAILY RF: 0 Xifaxan 550 mg Tablet 550 mg PO BID RF: 0 pantoprazole 40 mg Tablet,Delayed Release (Dr/Ec) 40 mg PO DAILY RF: 0 ferrous sulfate 325 mg (65 mg iron) Tablet 325 mg PO DAILY RF: 0 ursodiol 300 mg Capsule 300 mg PO TID RF: 0 ergocalciferol (vitamin D2) [Vitamin D2] 50,000 unit Capsule 50,000 unit PO WK RF: 0 lactulose 10 gram/15 mL Solution 15 ml PO TID RF: 0 magnesium oxide 400 mg magnesium Tablet 400 mg PO BID RF: 0 Discontinued metoprolol succinate 25 mg tablet extended release 24 hr 75 mg PO HS RF: 0 Discharge Orders: Discharge Order (Routine); Ordered 05/27/20 Ordered By: Jorge Gabriel Admission Data Admit Date/Time: 05/27/20 01:27 Attending Provider: Brigitte Benjamin Admit Provider: Vasyl Irvin Primary Care Provider: Stephen Montana Other Providers: Yamile Pinzon ; James Maurice Other Interventions: Discharge Summary Assessment (RN) Last Done: 05/27/20 16:58 Supervising Physician Co-Signing Physician Notes Resident Physician Supervision Note: I independently interviewed and examined the patient and verified the wilson history and physical, reviewed labs and image studies, discussed the case with the resident Dr. Gabriel and agree with the findings and care plan. Resident Activity Tracking Resident Involvement: Resident Care Provided Care Provided: Adult Hospital Medicine
[2020-05-30] MEDS ORDERED: ERGOCALCIFEROL 50,000 UNITS 1250 MCG CAP PO SCH (21:00)
== END 2020-05-27 17:29 | disposition home or self-care (01) ==
LOC: ED 20:31 → SUATTDRO 05-27 01:27 → INTOOBSV 05-27 01:27 → 2N 05-27 01:27